=== PATIENT | male | born 1960 | race African-American/Black ===

== ENCOUNTER 2017-10-10 17:17 | Emergency (ER) | payer MEDICAID ==
[2016-02-10 13:08] VITALS: BMI 21.1
[2017-10-10 18:16] LABS: BASOPHILS 0.2 % (0-2); EOSINOPHILS 0.6 % (0-7); HEMOGLOBIN 11.3 g/dL (13.5-17.5); IMMATURE GRANULOCYTES 1.1 % (0-5); MCH 33.3 pg (26.0-34.0); MCHC 34.2 g/dL (31.0-37.0); MCV 97.3 fL (80.0-100.0); MEAN PLATELET VOLUME 9.4 fL (7.4-10.4); MONOCYTES 11.9 % (2-11); NEUTROPHILS 41.2 % (40-80); PLATELET COUNT 57 10x3/uL (130-400); RBC 3.39 10x6/uL (4.20-6.10); RDW 14.5 % (11.5-14.5); WBC 4.6 10x3/uL (4.8-10.8)
[2017-10-10 18:36] LABS: ALBUMIN 2.6 g/dL (3.4-5.0); ALKALINE PHOSPHATASE 91 U/L (46-116); ALT (SGPT) 57 U/L (10-68); BILIRUBIN - TOTAL 1.96 mg/dL (0.2-1.3); CALC OSMOLALITY 272 mosm/kg (275-300); CALCIUM 8.2 mg/dL (8.5-10.1); CARBON DIOXIDE 24.7 mmol/L (21.0-32.0); CHLORIDE - SERUM 102 mmol/L (98-107); CREATININE - SERUM 0.9 mg/dL (0.6-1.3); GLUCOSE 127 mg/dL (74-106); MAGNESIUM - SERUM 1.7 mg/dL (1.8-2.4); POTASSIUM - SERUM 3.8 mmol/L (3.5-5.1); PROTEIN - SERUM 7.6 g/dL (6.4-8.2); SODIUM 137 mmol/L (136-145); UREA NITROGEN 4 mg/dL (7-18); eGFR NON AFRICAN AMERICAN > 90 mL/min (90-120)
[2017-10-10 19:14] LABS: PLATELET ESTIMATE DECREASED
[2017-10-10 19:38] LABS: TROPONIN-I 0.017 ng/mL (0.000-0.060)
[2017-10-10 20:35] LABS: APPEARANCE CLEAR (CLEAR); BILIRUBIN NEGATIVE (NEGATIVE); COLOR YELLOW (YELLOW); GLUCOSE NEGATIVE (NEGATIVE); KETONE NEGATIVE (NEGATIVE); NITRITE NEGATIVE (NEGATIVE); PROTEIN NEGATIVE (NEGATIVE); SPECIFIC GRAVITY 1.015 (1.005-1.020); UROBILINOGEN NORMAL (NORMAL)
[2017-10-10 20:51] LABS: UDS - AMPHET NEGATIVE QUAL (NEGATIVE); UDS - BARB NEGATIVE QUAL (NEGATIVE); UDS - BENZO NEGATIVE QUAL (NEGATIVE); UDS - COCAINE NEGATIVE QUAL (NEGATIVE); UDS - OPIATE NEGATIVE QUAL (NEGATIVE); UDS - PCP NEGATIVE QUAL (NEGATIVE); UDS - THC NEGATIVE QUAL (NEGATIVE)
== END 2017-10-11 08:49 | disposition home or self-care (01) ==
LOC: D.ER 17:17
PROVIDERS: Emergency Medicine; Nurse Practitioner Family
DX: F10.129 Alcohol abuse with intoxication, unspecified (principal); F10.10 Alcohol abuse, uncomplicated

== ENCOUNTER 2017-12-23 20:53 | Emergency (ER) | payer MEDICAID ==
[2016-02-10 13:08] VITALS: BMI 21.1
[2017-12-23 21:59] LABS: BASOPHILS 0 % (0-2); EOSINOPHILS 0.4 % (0-7); HEMATOCRIT 34.4 % (42.0-54.0); LYMPHOCYTES 63.7 % (15-50); MCH 33.5 pg (26.0-34.0); MCHC 34.9 g/dL (31.0-37.0); MCV 96.1 fL (80.0-100.0); MEAN PLATELET VOLUME 9.2 fL (7.4-10.4); NEUTROPHILS 23.9 % (40-80); RBC 3.58 10x6/uL (4.20-6.10); RDW 13.6 % (11.5-14.5); WBC 2.7 10x3/uL (4.8-10.8)
[2017-12-23 22:07] LABS: ALBUMIN 3.3 g/dL (3.4-5.0); ALKALINE PHOSPHATASE 210 U/L (46-116); ALT (SGPT) 124 U/L (10-68); BILIRUBIN - TOTAL 1.21 mg/dL (0.2-1.3); CALC OSMOLALITY 277 mosm/kg (275-300); CALCIUM 8.7 mg/dL (8.5-10.1); CARBON DIOXIDE 29.8 mmol/L (21.0-32.0); CHLORIDE - SERUM 103 mmol/L (98-107); CREATININE - SERUM 0.9 mg/dL (0.6-1.3); GLUCOSE 106 mg/dL (74-106); PROTEIN - SERUM 8.5 g/dL (6.4-8.2); SODIUM 140 mmol/L (136-145); UREA NITROGEN 11 mg/dL (7-18); eGFR NON AFRICAN AMERICAN > 90 mL/min (90-120)
[2017-12-23 22:13] LABS: PLATELET COUNT 25 10x3/uL (130-400)
[2017-12-23 22:42] LABS: PLATELET ESTIMATE DECREASED
== END 2017-12-23 22:45 | disposition home or self-care (01) ==
LOC: D.ER 20:53
PROVIDERS: Family Medicine
DX: R04.0 Epistaxis (principal); M54.9 Dorsalgia, unspecified; D69.6 Thrombocytopenia, unspecified; D72.819 Decreased white blood cell count, unspecified; R94.5 Abnormal results of liver function studies

== ENCOUNTER 2018-07-08 00:27 | Observation (INO) | payer MEDICAID ==
[~2018-07-08] VITALS: Ht 185.4 cm; Wt 77.3 kg
[2018-07-08 01:01] LABS: BASOPHILS 0.3 % (0-2); EOSINOPHILS 0.3 % (0-7); HEMATOCRIT 29.5 % (42.0-54.0); HEMOGLOBIN 10.3 g/dL (13.5-17.5); IMMATURE GRANULOCYTES 0.3 % (0-5); LYMPHOCYTES 47.5 % (15-50); MCH 33.4 pg (26.0-34.0); MCHC 34.9 g/dL (31.0-37.0); MCV 95.8 fL (80.0-100.0); MEAN PLATELET VOLUME 10.7 fL (7.4-10.4); MONOCYTES 13.4 % (2-11); NEUTROPHILS 38.2 % (40-80); RBC 3.08 10x6/uL (4.20-6.10); RDW 14.6 % (11.5-14.5); WBC 3.4 10x3/uL (4.8-10.8)
[2018-07-08 01:07] LABS: PLATELET COUNT 35 10x3/uL (130-400)
[2018-07-08 01:23] LABS: ALBUMIN 2.9 g/dL (3.4-5.0); ALKALINE PHOSPHATASE 102 U/L (46-116); ALT (SGPT) 76 U/L (10-68); BILIRUBIN - TOTAL 3.59 mg/dL (0.2-1.3); CALC OSMOLALITY 261 mosm/kg (275-300); CALCIUM 8.1 mg/dL (8.5-10.1); CARBON DIOXIDE 20.6 mmol/L (21.0-32.0); CHLORIDE - SERUM 97 mmol/L (98-107); CREATININE - SERUM 0.9 mg/dL (0.6-1.3); GLUCOSE 100 mg/dL (74-106); POTASSIUM - SERUM 3.5 mmol/L (3.5-5.1); PROTEIN - SERUM 7.8 g/dL (6.4-8.2); SODIUM 131 mmol/L (136-145); UREA NITROGEN 11 mg/dL (7-18); eGFR NON AFRICAN AMERICAN > 90 mL/min (90-120)
[2018-07-08 02:57] LABS: APPEARANCE CLEAR (CLEAR); BILIRUBIN NEGATIVE (NEGATIVE); COLOR YELLOW (YELLOW); GLUCOSE NEGATIVE (NEGATIVE); KETONE NEGATIVE (NEGATIVE); NITRITE NEGATIVE (NEGATIVE); PROTEIN NEGATIVE (NEGATIVE); UROBILINOGEN NORMAL (NORMAL)
[2018-07-08 03:00] VITALS: BP 106/62
[2018-07-08 03:05] LABS: UDS - AMPHET NEGATIVE QUAL (NEGATIVE); UDS - BARB NEGATIVE QUAL (NEGATIVE); UDS - BENZO NEGATIVE QUAL (NEGATIVE); UDS - COCAINE NEGATIVE QUAL (NEGATIVE); UDS - OPIATE NEGATIVE QUAL (NEGATIVE); UDS - PCP NEGATIVE QUAL (NEGATIVE); UDS - THC NEGATIVE QUAL (NEGATIVE)
[2018-07-08 09:03] VITALS: BP 99/68
[2018-07-08 10:50] LABS: APTT 34.7 SECONDS (22.8-39.4); INR 1.38 (0.85-1.17); PROTIME 16.5 SECONDS (11.6-15.0)
[2018-07-08 10:53] VITALS: BP 99/68; Ht 185.4 cm; Wt 77.3 kg
[2018-07-09 02:16] LABS: LYMPHOCYTES 46 % (15-50); MONOCYTES 11 % (2-11); NEUTROPHILS 43 % (40-80); PLATELET ESTIMATE DECREASED
== END 2018-07-08 19:45 | disposition home or self-care (01) ==
LOC: D.ER 00:27 → OBSVTIME 05:03 → D.MS 05:03 → D.EDHOLD 05:03 → D.MS 05:42
PROVIDERS: Family Medicine; Internal Medicine Medical Oncology
DX: D69.6 Thrombocytopenia, unspecified (principal); F10.129 Alcohol abuse with intoxication, unspecified; Y90.7 Blood alcohol level of 200-239 mg/100 ml; R22.0 Localized swelling, mass and lump, head; Z59.0 Homelessness

== ENCOUNTER 2018-10-20 19:06 | Emergency (ER) | payer MEDICAID | END 2018-10-21 01:06 | disposition home or self-care (01) | LOC: D.ER 19:06 | DX: K02.9 Dental caries, unspecified (principal); D17.79 Benign lipomatous neoplasm of other sites; K08.89 Other specified disorders of teeth and supporting structures; R22.9 Localized swelling, mass and lump, unspecified; F17.200 Nicotine dependence, unspecified, uncomplicated ==

== ENCOUNTER 2018-10-21 02:27 | Inpatient (IN) | payer MEDICAID ==
[2018-10-21] VITALS (17 sets, daily range): BP systolic 101–138; BP diastolic 54–91; Ht 185.4 cm; Wt 77.3 kg
[~2018-10-21] VITALS: Ht 185.4 cm; Wt 77.3 kg
--- NOTE | ~2018-10-21 | OP ---
PATIENT NAME: MACO SAVAGE MEDICAL RECORD: [id number] :60 LOCATION:D.MS [facility]roquin2224 ADMISSION DATE:10/21/18 SURGEON: CECILIO VELAZQUEZ MD DATE OF OPERATION: 10/21/2018 PREOPERATIVE DIAGNOSES: Right facial hematoma and hemorrhaging. POSTOPERATIVE DIAGNOSES: Right facial hematoma and hemorrhaging. PROCEDURE: Evacuation of right facial hematoma and control of hemorrhaging. SURGEON: Cecilio Velazquez MD ANESTHESIA: General orotracheal. BLOOD LOSS: During the procedure including the hematoma evacuation about 50 cc. SPECIMENS: None. DRAINS: A Brandon drain. COMPLICATIONS: None. DISPOSITION: Recovery stable. FINDINGS: Bleeding from the multiple areas in the masseter muscle, some small vessels inferiorly possible branches of the facial artery. DESCRIPTION OF PROCEDURE: He was brought to the operating room and placed in supine position, he was sedated and intubated by anesthesia. Head was turned slightly to the left. He was positioned, prepped and draped in usual sterile fashion. Some more sutures were removed from the wound in the right lower face with just a finger was able to evacuate large lemon-sized hematoma. With that completed, the wound was irrigated with warm saline and carefully inspected. There were multiple small areas in the masseter muscle. They were cauterized with bipolar cautery. Some small vessels easily identified inferiorly that were controlled with bipolar cautery as well, cautious to avoid any injury to the marginal nerve. There was no really way to tell if that was functional preoperative to the massive facial swelling. Once the bleeding was controlled, the wound was carefully irrigated again, carefully inspected, some bleeding was controlled from the skin edges with bipolar cautery as well. With that completely clean, some fibrillar was placed on some of the areas of the masseter muscle. He was already receiving platelets by this time. A [place] drain was placed. He already received IV antibiotics. The wound was closed with interrupted subcutaneous 5-0 Vicryl. Skin was closed with 5-0 Prolene and drain stitch was placed. The wound was dressed. He was awakened, extubated, and transported to recovery in good condition. No complications. TRANSINT:[id number] Voice Confirmation ID: [id number] DOCUMENT ID: [id number] OPERATIVE REPORT [id number] AMCO SAVAGE CECILIO VELAZQUEZ MD at 1011 CC: [id number] DICTATION DATE: 10/21/18 0533 MANAGER ACQUISITION: 10/21/18 0931 ADM IN [place] [id number] [place] [address]
--- NOTE | ~2018-10-21 | MORECARE ---
CASE MANAGEMENT DISCHARGE SUMMARY PATIENT: MACO SAVAGE UNIT: [id number] ADM DATE: 10/21/18 AGE: 58 : 60 SEX: M ROOM/BED: D.2224 AUTHOR: CHAMP,DOC PHYSICIAN: REFERRING PHYSICIAN: RAVI VELAZQUEZ MD DATE OF SERVICE: 10/22/18 Discharge Plan Patient Name: MACO SAVAGE Facility: [facility]:[place] : 1960 Planned Disposition: Other Type of Facility Anticipated Discharge Date: 10/22/18 Discharge Date: 10/22/2018 Expected LOS: 1 Initial Reviewer: [email or web address] Initial Review Date: 10/21/2018 Generated: 10/22/18 3:13 pm Comments DCP- Discharge Planning Updated by [email or web address]: Krissy Vidal on 10/22/18 1:[address] LATE ENTRY 0950 CM SPOKE WITH THE PATIENT AT THE BEDSIDE THIS AM. HE IS HOMELESS, HIS PLAN IS TO GO TO A CARE HOME. HE IS FAMILIAR WITH [facility]. HE ALSO STATES HE HAS BEEN TO [facility] DURING THE WINTER. HE WILL NEED TRANSPORTATION. HE HAS INSURANCE WHICH CM VERIFIED WITH ER REGISTRATION. HE THEREFORE SHOULD BE ABLE TO GET HIS MEDICATIONS. CM TO APPROVED [employer]AX[employer] TRANSPORT TO CARE HOME. HE HAS A SISTER. WILL NOT GIVE NAME AND STATES HE DOES NOT KNOW HER CONTACT PHONE NUMBER. PHARMACY- [facility] PCP-NONE CM PROVIDED CONTACT PHONE NUMBER FOR [facility] [phone] AND [facility] [phone] FOR PATIENT TO CALL. CM SPOKE WITH THE PRIMARY NURSE TO UPDATE. CM REQUESTED THE PATIENT BE GIVEN DRESSINGS FOR DRSG CHANGE AND SOME OF HIS SUPPLEMENT TO ASSIST WITH WOUND HEALING. DCPIA - Discharge Planning Initial Assessment Updated by [email or web address]: Krissy Vidal on 10/22/18 1:27 pm * Is the patient Alert and Oriented? Yes * How many steps to enter\exit or inside your home? NONE * PCP NONE * Pharmacy [facility] * Preadmission Environment Homeless * Other Environment HAS BEEN TO [facility] DURING EXTREME COLD PEROIDS WHEN THEIR CARE HOME IS OPEN. * Facility Name ABOVE * ADLs Independent * Other Equipment HIS PERSONAL BELONGINGS * List name and contact numbers for known caregivers / representatives who currently or will assist patient after discharge: NONE LISTED AND HE DID NOT GIVE ADDITIONAL INFORMATION * Verbal permission to speak to the caregivers and representatives has been obtained from the patient. No * Community resources currently utilized None * Please name any agencies selected above. N/A * Additional services required to return to the preadmission environment? Yes * Can the patient safely return to the preadmission environment? Yes * Has this patient been hospitalized within the prior 30 days at any hospital? No Last DP export: 10/22/18 12:30 p Patient Name: MACO SAVAGE Page 29619 at 1414 All edits/amendments must be made on the electronic document DICTATION DATE: 10/22/181412 ROLLER: YELENA 10/22/181412 RPT#: [id number] DC DATE:10/22/18 STATUS: DIS IN [facility] [address] [place] [address] END OF REPORT
--- NOTE | ~2018-10-21 | MORECARE ---
CASE MANAGEMENT DISCHARGE SUMMARY PATIENT: MACO SAVAGE UNIT: [id number] ADM DATE: 10/21/18 AGE: 58 : 60 SEX: M ROOM/BED: D.2224 AUTHOR: FINA OAKES PHYSICIAN: REFERRING PHYSICIAN: RAVI VELAZQUEZ MD DATE OF SERVICE: 10/22/18 Discharge Plan Patient Name: MACO SAVAGE [facility] [facility] 1960 Planned Disposition: Other Type of Facility Anticipated Discharge Date: 10/22/18 Discharge Date: Expected LOS: 1 Initial Reviewer: [email or web address] Initial Review Date: 10/21/2018 Generated: 10/22/18 2:30 pm DCPIA - Discharge Planning Initial Assessment Updated by [email or web address]: Krsisy Vidal on 10/22/18 1:27 pm * Is the patient Alert and Oriented? Yes * How many steps to enter\exit or inside your home? NONE * PCP NONE * Pharmacy [facility] * Preadmission Environment Homeless * Other Environment HAS BEEN TO [facility] DURING EXTREME COLD PEROIDS WHEN THEIR INTERMEDIATE IS OPEN. * Facility Name ABOVE * ADLs Independent * Other Equipment HIS PERSONAL BELONGINGS * List name and contact numbers for known caregivers / representatives who currently or will assist patient after discharge: NONE LISTED AND HE DID NOT GIVE ADDITIONAL INFORMATION * Verbal permission to speak to the caregivers and representatives has been obtained from the patient. No * Community resources currently utilized None * Please name any agencies selected above. N/A * Additional services required to return to the preadmission environment? Yes * Can the patient safely return to the preadmission environment? Yes * Has this patient been hospitalized within the prior 30 days at any hospital? No Last DP export: 10/22/18 12:23 p Patient Name: MACO SAVAGE Page 10157 at 1330 All edits/amendments must be made on the electronic document DICTATION DATE: 10/22/18 1329 SUMAC TANNER: YELENA 10/22/18 1329 RPT#: [id number] DC DATE: STATUS: ADM IN [facility] [address] [place] [address] END OF REPORT
--- NOTE | ~2018-10-21 | HP ---
PATIENT: MACO SAVAGE MEDICAL RECORD: [id number] ACCOUNT: [id number] LOCATION:D.MS Marroquin2224 : 60 ADMISSION DATE: 10/21/18 PCP: No PCP HISTORY AND PHYSICAL EXAMINATION HISTORY: Mr. Savage is a 58-year-old male, who was in the Emergency Room, underwent a procedure to drain something on the right face, I don't think he ever left but several hours later was noticed to have tremendous amount of right facial swelling and continued bleeding from the area that the Emergency Room was not able to stop. His past medical history fairly well unknown. He has a platelet count of 50. He has had platelet counts in the 30s before. He is as far as I now homeless, alcoholic. He does smoke and has been in the Emergency Room with possible seizures or DTs, brought in found down, unconscious on previous hospital ER visits. His platelet count is low, he does not know why. He is not on any medications. He does smoke and drink alcohol. PHYSICAL EXAMINATION: GENERAL: He is intoxicated. HEENT: Right facial, quite a bit of swelling of the right cheek with bleeding incision over the right angle of the mandible near the facial notch about 4 cm in length. Swelling up to his eye. NECK: No masses or adenopathy. Really does not have any swelling below the angle of the mandible. CHEST: Clear. CARDIOVASCULAR: Regular rate and rhythm. No murmur. Appears slightly dehydrated. NEUROLOGIC: Not a very good historian, but does have a fairly normal voice. LABORATORY DATA: Platelet count is 50, hemoglobin is above 11. Creatinine 0.9. His PT and PTT are okay. IMPRESSION: Right facial hematoma, thrombocytopenia. PLAN: We will admit him, take him to the OR for evacuation of hematoma, control of hemorrhage from the facial wound, and give him some platelets. TRANSINT:[id number] Voice Confirmation ID: [id number] DOCUMENT ID: [id number] RAVI VELAZQUEZ MD at 1011 CC: [id number] DICTATION DATE: 10/21/18 0530 BUILDING SPECIALIST: 10/21/18 0736 ADM IN [place] [address] [place] [address]
--- NOTE | ~2018-10-21 | MORECARE ---
CASE MANAGEMENT DISCHARGE SUMMARY PATIENT: MACO SAVAGE UNIT: [id number] ADM DATE: 10/21/18 AGE: 58 : 60 SEX: M ROOM/BED: D.2224 AUTHOR: FINA OAKES PHYSICIAN: REFERRING PHYSICIAN: RAVI VELAZQUEZ MD DATE OF SERVICE: 10/22/18 Discharge Plan Patient Name: MACO SAVAGE [facility] [facility] 1960 Planned Disposition: Other Type of Facility Anticipated Discharge Date: 10/22/18 Discharge Date: Expected LOS: 1 Initial Reviewer: [email or web address] Initial Review Date: 10/21/2018 Generated: 10/22/18 2:23 pm Patient Name: MACO SAVAGE Page 16459 at 1323 All edits/amendments must be made on the electronic document DICTATION DATE: 10/22/18 1323 SUPERVISOR VENEER: YELENA 10/22/18 1323 RPT#: [id number] DC DATE: STATUS: ADM IN [facility] [address] [place] [address] END OF REPORT
[~2018-10-21 02:27] MED LIST: KEFLEX500 MG PO; TORADOL10 MG PO
[2018-10-21 03:27] LABS: BASOPHILS 0.3 % (0-2); EOSINOPHILS 0.5 % (0-7); HEMATOCRIT 33.5 % (42.0-54.0); HEMOGLOBIN 11.7 g/dL (13.5-17.5); IMMATURE GRANULOCYTES 0.3 % (0-5); LYMPHOCYTES 42.3 % (15-50); MCH 34.6 pg (26.0-34.0); MCHC 34.9 g/dL (31.0-37.0); MCV 99.1 fL (80.0-100.0); MEAN PLATELET VOLUME 9.7 fL (7.4-10.4); MONOCYTES 11.9 % (2-11); NEUTROPHILS 44.7 % (40-80); PLATELET COUNT 50 10x3/uL (130-400); RBC 3.38 10x6/uL (4.20-6.10); RDW 14.1 % (11.5-14.5); WBC 3.7 10x3/uL (4.8-10.8)
[2018-10-21 03:31] LABS: APTT 32.5 SECONDS (22.8-39.4); CALC OSMOLALITY 279 mosm/kg (275-300); CALCIUM 8.6 mg/dL (8.5-10.1); CHLORIDE - SERUM 105 mmol/L (98-107); CREATININE - SERUM 0.9 mg/dL (0.6-1.3); GLUCOSE 110 mg/dL (74-106); INR 1.34 (0.85-1.17); POTASSIUM - SERUM 3.9 mmol/L (3.5-5.1); PROTIME 16.1 SECONDS (11.6-15.0); SODIUM 140 mmol/L (136-145); UREA NITROGEN 12 mg/dL (7-18); eGFR NON AFRICAN AMERICAN > 90 mL/min (90-120)
[2018-10-21 11:28] LABS: HEMATOCRIT 27.1 % (42.0-54.0); MCH 33.8 pg (26.0-34.0); MCHC 33.9 g/dL (31.0-37.0); MCV 99.6 fL (80.0-100.0); MEAN PLATELET VOLUME 8.9 fL (7.4-10.4); RBC 2.72 10x6/uL (4.20-6.10)
[2018-10-21 11:33] LABS: HEMOGLOBIN 9.2 g/dL (13.5-17.5); PLATELET COUNT 102 10x3/uL (130-400); WBC 2.4 10x3/uL (4.8-10.8)
[2018-10-21 11:52] LABS: LYMPHOCYTES 14 % (15-50); NEUTROPHILS 84 % (40-80); PLATELET ESTIMATE DECREASED
[2018-10-22 05:35] VITALS: BP 119/67
[2018-10-22 08:35] VITALS: BP 125/68
[2018-10-22 12:08] VITALS: BP 122/75
[2018-10-22] MEDS ORDERED: KEFLEX500 MG PO (13:02)
== END 2018-10-22 13:56 | disposition home or self-care (01) | DRG 909 ==
LOC: D.ER 02:27 → D.MS 05:05 → OBSVTIME 05:05 → D.MS 05:05
PROVIDERS: Emergency Medicine; Otolaryngology
PROC: 0W320ZZ Control Bleeding in Face, Open Approach (ICD-10-PCS; 2018-10-21)
PROC: 0K9 Muscles, Drainage (ICD-10-PCS; principal; 2018-10-21 04:00)
DX: I97.52 Accidental puncture and laceration of a circulatory system organ or structure during other procedure (principal); Y83.8 Other surgical procedures as the cause of abnormal reaction of the patient, or of later complication, without mention of misadventure at the time of the procedure; Y92.230 Patient room in hospital as the place of occurrence of the external cause; D69.6 Thrombocytopenia, unspecified; F10.20 Alcohol dependence, uncomplicated; Z72.0 Tobacco use

== ENCOUNTER → 2018-12-11 10:55 | Outpatient (CLI) | payer MEDICAID, OTHER ==
[2018-10-21 06:16] VITALS: BMI 22.4
== END | disposition home or self-care (01) ==
LOC: D.RAD 10:55
DX: Z02.71 Encounter for disability determination (principal)

== ENCOUNTER → 2019-01-04 13:16 | Outpatient (CLI) | payer OTHER ==
[2018-10-21 06:16] VITALS: BMI 22.4
== END | disposition home or self-care (01) ==
LOC: D.RT 13:00
DX: Z02.71 Encounter for disability determination (principal)

== ENCOUNTER 2019-06-22 07:51 | Emergency (ER) | payer MEDICAID ==
[~2019-06-22] VITALS: Ht 185.4 cm; Wt 77.3 kg
[2019-06-22 08:03] VITALS: BP 125/81; Ht 185.4 cm; Wt 77.3 kg
[2019-06-22] MEDS ORDERED: HYDROCODONE-A1 UDTA2 PO (08:49)
== END 2019-06-22 08:59 | disposition home or self-care (01) ==
LOC: D.ER 07:51
DX: S92.505A Nondisplaced unspecified fracture of left lesser toe(s), initial encounter for closed fracture (principal); V88.8XXA Person injured in other specified noncollision transport accidents involving motor vehicle, nontraffic, initial encounter; F17.200 Nicotine dependence, unspecified, uncomplicated

== ENCOUNTER 2019-06-25 23:18 | Inpatient (IN) | payer MEDICAID ==
[~2019-06-25] VITALS: Ht 185.4 cm; Wt 63.6 kg
[~2019-06-25 23:18] MED LIST changes: +HYDROCODONE-A1 UDTA2 PO
--- NOTE | 2019-06-25 23:24 | NUR ---
UNABLE TO ASSESS SUICIDE ASSESSMENT AT THIS TIME D/T PT ATTENTION AND MENTATION.
[2019-06-25 23:31] VITALS: BP 121/81
--- NOTE | 2019-06-26 00:14 | NUR ---
URINE COLLECTED AND SENT TO LAB AT THIS TIME.
[2019-06-26 00:26] LABS: HEMATOCRIT 25.2 % (42.0-54.0); HEMOGLOBIN 8.8 g/dL (13.5-17.5); MCH 34.2 pg (26.0-34.0); MCHC 34.9 g/dL (31.0-37.0); MCV 98.1 fL (80.0-100.0); RBC 2.57 10x6/uL (4.20-6.10); WBC 4.8 10x3/uL (4.8-10.8)
[2019-06-26 00:27] LABS: LYMPHOCYTES 24.9 % (15-50); MEAN PLATELET VOLUME 9.9 fL (7.4-10.4); NEUTROPHILS 66.6 % (40-80); PLATELET COUNT 74 10x3/uL (130-400); RDW 19.1 % (11.5-14.5)
[2019-06-26 00:36] LABS: ALKALINE PHOSPHATASE 217 U/L (46-116); ALT (SGPT) 38 U/L (10-68); BILIRUBIN - TOTAL 4.24 mg/dL (0.2-1.3); CALC OSMOLALITY 255 mosm/kg (275-300); CALCIUM 8.6 mg/dL (8.5-10.1); CARBON DIOXIDE 24.5 mmol/L (21.0-32.0); CHLORIDE - SERUM 97 mmol/L (98-107); CREATININE - SERUM 0.8 mg/dL (0.6-1.3); GLUCOSE 91 mg/dL (74-106); POTASSIUM - SERUM 3.8 mmol/L (3.5-5.1); SODIUM 129 mmol/L (136-145); UREA NITROGEN 5 mg/dL (7-18); eGFR NON AFRICAN AMERICAN > 90 mL/min (90-120)
[2019-06-26 00:37] LABS: ALBUMIN 2.4 g/dL (3.4-5.0); PROTEIN - SERUM 7.7 g/dL (6.4-8.2)
--- NOTE | 2019-06-26 00:50 | NUR ---
PT TO CT AT THIS TIME.
[2019-06-26 01:01] LABS: APPEARANCE CLEAR (CLEAR); BILIRUBIN NEGATIVE (NEGATIVE); COLOR YELLOW (YELLOW); GLUCOSE NEGATIVE (NEGATIVE); KETONE NEGATIVE (NEGATIVE); NITRITE NEGATIVE (NEGATIVE); PROTEIN NEGATIVE (NEGATIVE); SPECIFIC GRAVITY 1.005 (1.005-1.020); UROBILINOGEN NORMAL (NORMAL)
[2019-06-26 01:02] LABS: WHITE CELLS - URINE 0-5 /hpf (0-5)
[2019-06-26 01:03] LABS: BACTERIA FEW /hpf (NONE SEEN); EPITHELIAL CELLS 0-5 /hpf (0-5); RED CELLS - URINE 0-5 /hpf (0-5)
--- NOTE | 2019-06-26 01:05 | NUR ---
PT RETURNED FROM CT AT THIS TIME.
[2019-06-26 01:37] LABS: UDS - AMPHET NEGATIVE QUAL (NEGATIVE); UDS - BARB NEGATIVE QUAL (NEGATIVE); UDS - BENZO NEGATIVE QUAL (NEGATIVE); UDS - COCAINE POSITIVE QUAL (NEGATIVE); UDS - OPIATE NEGATIVE QUAL (NEGATIVE); UDS - PCP NEGATIVE QUAL (NEGATIVE); UDS - THC NEGATIVE QUAL (NEGATIVE)
[2019-06-26 01:55] VITALS: BP 117/70
--- NOTE | 2019-06-26 02:08 | NUR ---
PT RESTING QUIETLY WITH EYES CLOSED AND TV ON AT THIS TIME. SIDE RAILS UP X 2, CALL LIGHT IN REACH, BED IN LOWEST POSITION. NO S/S DISTRESS NOTED. RESPIRATIONS EVEN AND UNLABORED.
--- NOTE | 2019-06-26 07:30 | NUR ---
PT RESTING IN BED, EYES CLOSED. AROUSES TO VOICE. VERY SLEEPY. NO C/O PAIN. NO S/S OF ACUTE DISTRESS NOTED. PT DENIES ANY NEEDS. CALL LIGHT IN REACH. WILL CONTINUE TO MONITOR.
[2019-06-26 07:42] LABS: ALBUMIN 2.3 g/dL (3.4-5.0); ALKALINE PHOSPHATASE 211 U/L (46-116); ALT (SGPT) 35 U/L (10-68); AMYLASE - SERUM 33 U/L (25-115); BILIRUBIN - TOTAL 3.97 mg/dL (0.2-1.3); CALC OSMOLALITY 273 mosm/kg (275-300); CALCIUM 8.4 mg/dL (8.5-10.1); CARBON DIOXIDE 21.9 mmol/L (21.0-32.0); CHLORIDE - SERUM 104 mmol/L (98-107); CREATININE - SERUM 0.8 mg/dL (0.6-1.3); GLUCOSE 80 mg/dL (74-106); LIPASE 142 U/L (73-393); POTASSIUM - SERUM 4.1 mmol/L (3.5-5.1); PROTEIN - SERUM 7.5 g/dL (6.4-8.2); SODIUM 139 mmol/L (136-145); UREA NITROGEN 5 mg/dL (7-18); eGFR NON AFRICAN AMERICAN > 90 mL/min (90-120)
[2019-06-26 07:51] VITALS: BP 103/76; Ht 185.4 cm; Wt 63.6 kg
[2019-06-26 08:33] LABS: HEMATOCRIT 27.4 % (42.0-54.0); HEMOGLOBIN 9.5 g/dL (13.5-17.5); MCH 32.8 pg (26.0-34.0); MCHC 34.7 g/dL (31.0-37.0); MEAN PLATELET VOLUME 10.9 fL (7.4-10.4); PLATELET COUNT 87 10x3/uL (130-400); RDW 17.1 % (11.5-14.5)
[2019-06-26 08:35] LABS: MCV 94.5 fL (80.0-100.0)
[2019-06-26 08:59] VITALS: BP 97/65
[2019-06-26 10:35] LABS: LYMPHOCYTES 26 % (15-50); MONOCYTES 9 % (2-11); NEUTROPHILS 65 % (40-80)
[2019-06-26 10:36] LABS: HYPOCHROMASIA OCC; PLATELET ESTIMATE DECREASED; ROULEAUX OCC; TARGET CELLS OCC
[2019-06-26 10:53] LABS: % SATURATION 27 % (15-55); IRON 72 ug/dl (35-150); TOTAL IRON BIND CAPACITY 263 ug/dl (260-445); UNSAT IRON BIND CAPACITY 191 ug/dl (150-375)
[2019-06-26 13:11] VITALS: BP 92/64
--- NOTE | 2019-06-26 14:16 | NUR ---
PT LEFT AMA, TOOK OUT IV. PT TOOK BELONGINGS AND IS NOT IN ROOM. ORTHODONTIC TECHNICIAN AWARE.
== END 2019-06-26 14:17 | disposition left against medical advice (07) | DRG 433 ==
LOC: D.ER 23:18 → D.MS 06-26 02:21
PROVIDERS: Family Medicine; ADMIT Internal Medicine Nephrology; ATTEND Internal Medicine Nephrology
DX: K74.60 Unspecified cirrhosis of liver (principal); C22.0 Liver cell carcinoma; C79.9 Secondary malignant neoplasm of unspecified site; R18.8 Other ascites; F17.213 Nicotine dependence, cigarettes, with withdrawal; F10.129 Alcohol abuse with intoxication, unspecified; Y90.8 Blood alcohol level of 240 mg/100 ml or more; F14.90 Cocaine use, unspecified, uncomplicated; D64.9 Anemia, unspecified; D69.6 Thrombocytopenia, unspecified; S92.902A Unspecified fracture of left foot, initial encounter for closed fracture; W23.0XXA Caught, crushed, jammed, or pinched between moving objects, initial encounter

== ENCOUNTER 2019-07-09 08:51 | Inpatient (IN) | payer MEDICAID ==
[2019-07-09] VITALS (8 sets, daily range): BP systolic 102–131; BP diastolic 71–85; BMI 22.4
[~2019-07-09] VITALS: Ht 185.4 cm; Wt 77.1 kg
[2019-07-09 09:43] LABS: BASOPHILS 0.2 % (0-2); EOSINOPHILS 0 % (0-7); HEMATOCRIT 27.6 % (42.0-54.0); HEMOGLOBIN 9.7 g/dL (13.5-17.5); IMMATURE GRANULOCYTES 0.3 % (0-5); LYMPHOCYTES 12.7 % (15-50); MCH 34.4 pg (26.0-34.0); MCHC 35.1 g/dL (31.0-37.0); MCV 97.9 fL (80.0-100.0); MEAN PLATELET VOLUME 9.8 fL (7.4-10.4); MONOCYTES 8.3 % (2-11); NEUTROPHILS 78.5 % (40-80); RBC 2.82 10x6/uL (4.20-6.10); WBC 6.2 10x3/uL (4.8-10.8)
[2019-07-09 09:45] LABS: PLATELET COUNT 105 10x3/uL (130-400)
[2019-07-09 09:57] LABS: ALBUMIN 2.5 g/dL (3.4-5.0); ALKALINE PHOSPHATASE 214 U/L (46-116); ALT (SGPT) 41 U/L (10-68); BILIRUBIN - TOTAL 7.39 mg/dL (0.2-1.3); CALC OSMOLALITY 260 mosm/kg (275-300); CALCIUM 9.6 mg/dL (8.5-10.1); CARBON DIOXIDE 24.8 mmol/L (21.0-32.0); CHLORIDE - SERUM 98 mmol/L (98-107); CREATININE - SERUM 0.8 mg/dL (0.6-1.3); GLUCOSE 100 mg/dL (74-106); LIPASE 206 U/L (73-393); POTASSIUM - SERUM 4.5 mmol/L (3.5-5.1); SODIUM 131 mmol/L (136-145); UREA NITROGEN 7 mg/dL (7-18); eGFR NON AFRICAN AMERICAN > 90 mL/min (90-120)
--- NOTE | 2019-07-09 10:08 | NUR ---
PT IMMEDIATELY DEVELOPED ITCHING AND MINOR RASH TO RIGHT ARM,PROXIMAL TO IV SITE AFTER MORPHINE ADMINISTRATION. NOTIFIED IMMEDIATELY. HE ADVISED TO GIVE THE PATIENT 25MG OF BENADRYL.
[2019-07-09 12:58] LABS: INR 1.54 (0.85-1.17); PROTIME 17.9 SECONDS (11.6-15.0)
--- NOTE | 2019-07-09 13:30 | NUR ---
REPORT CALLED TO HEIKE RODRIGUEZ.
[2019-07-09 15:48] LABS: APPEARANCE CLEAR (CLEAR); BILIRUBIN 2+ (NEGATIVE); COLOR DK YELLOW (YELLOW); GLUCOSE NEGATIVE (NEGATIVE); KETONE NEGATIVE (NEGATIVE); NITRITE NEGATIVE (NEGATIVE); PROTEIN NEGATIVE (NEGATIVE)
[2019-07-09 15:50] LABS: BACTERIA FEW /hpf (NONE SEEN); RED CELLS - URINE OCC /hpf (0-5); WHITE CELLS - URINE 0-5 /hpf (0-5)
[2019-07-09 15:56] LABS: UDS - AMPHET NEGATIVE QUAL (NEGATIVE); UDS - BARB NEGATIVE QUAL (NEGATIVE); UDS - BENZO NEGATIVE QUAL (NEGATIVE); UDS - COCAINE POSITIVE QUAL (NEGATIVE); UDS - OPIATE POSITIVE QUAL (NEGATIVE); UDS - PCP NEGATIVE QUAL (NEGATIVE); UDS - THC NEGATIVE QUAL (NEGATIVE)
[2019-07-09 16:32] LABS: THYROID STIMULATING HORMONE 9.5 uIU/mL (0.36-3.74)
--- NOTE | 2019-07-09 20:00 | NUR ---
ASSESSMENT PER JULIETTE. SALINE LOCK PATENT RT HAND SITE CLEAR. JULISSA MAT ON BED AND ALARMS SET. SCLERA JAUNDICE. ALERT/ORIENTED X3 SR UP X2 CALL LIGHT WITHIN REACH.
--- NOTE | 2019-07-09 23:55 | NUR ---
UP WITH HELP TO BR VOIDS WELL. WILL BE NPO FOR RADIOLOGY PROCEDURE IN AM.
[2019-07-10 00:17] VITALS: BP 101/65
[2019-07-10 04:42] VITALS: BP 112/74
--- NOTE | 2019-07-10 05:30 | NUR ---
EYES CLOSED RESPIRATIONS WITH EASE AND UNLABORED.
[2019-07-10 05:41] LABS: BASOPHILS 0.2 % (0-2); EOSINOPHILS 0.3 % (0-7); HEMATOCRIT 25.2 % (42.0-54.0); HEMOGLOBIN 9.1 g/dL (13.5-17.5); IMMATURE GRANULOCYTES 0.6 % (0-5); LYMPHOCYTES 15.8 % (15-50); MCH 35.3 pg (26.0-34.0); MCHC 36.1 g/dL (31.0-37.0); MCV 97.7 fL (80.0-100.0); MEAN PLATELET VOLUME 10.2 fL (7.4-10.4); MONOCYTES 11.5 % (2-11); NEUTROPHILS 71.6 % (40-80); PLATELET COUNT 101 10x3/uL (130-400); RBC 2.58 10x6/uL (4.20-6.10); WBC 6.2 10x3/uL (4.8-10.8)
[2019-07-10 05:50] LABS: APTT 36.5 SECONDS (22.8-39.4); INR 1.55 (0.85-1.17)
[2019-07-10 05:55] LABS: CALC OSMOLALITY 261 mosm/kg (275-300); CARBON DIOXIDE 24.4 mmol/L (21.0-32.0); CHLORIDE - SERUM 99 mmol/L (98-107); CREATININE - SERUM 0.8 mg/dL (0.6-1.3); GLUCOSE 84 mg/dL (74-106); POTASSIUM - SERUM 4.3 mmol/L (3.5-5.1); SODIUM 132 mmol/L (136-145); UREA NITROGEN 8 mg/dL (7-18); eGFR NON AFRICAN AMERICAN > 90 mL/min (90-120)
[2019-07-10 08:06] VITALS: BP 93/58
[2019-07-10 09:24] LABS: % SATURATION 48 % (15-55); IRON 105 ug/dl (35-150); TOTAL IRON BIND CAPACITY 215 ug/dl (260-445); UNSAT IRON BIND CAPACITY 110 ug/dl (150-375)
[2019-07-10 14:15] VITALS: BP 102/68
[2019-07-10 14:35] VITALS: Ht 185.4 cm; Wt 77.1 kg
[2019-07-10 15:47] VITALS: BP 101/68
--- NOTE | 2019-07-10 17:10 | NUR ---
PATIENT STATED HE HAS SWELLING TO HIS TESTICLES. ELEVATED ON TOWEL AT THIS TIME. IV INTACT. NO COMPLAINTS. CALL LIGHT WITHIN REACH.
--- NOTE | 2019-07-10 18:33 | NUR ---
PATIENT IN BED WITH EYES CLOSED RESTING QUIETLY AT THIS TIME. IV INTACT. CALL LIGHT WITHIN REACH.
--- NOTE | 2019-07-10 20:00 | NUR ---
ASSESSMENT PER FLOWSHEET. IV PATENT RT HAND SALINE LOCKED. SR UP X2 CALL LIGHT WITHIN REACH JULISSA BED ALARM MAT IN USE WITH ALARMS SET. DOOR OPENED. SCLERA JAUNDICE BILAT. TESTICLES SWOLLEN.
[2019-07-10 21:37] VITALS: BP 104/68
--- NOTE | 2019-07-10 21:40 | NUR ---
RESTING QUIETLY DENIES NEEDS.
--- NOTE | 2019-07-10 23:53 | NUR ---
NPO FOR POSSIBLE CT GUIDED PARACENTESIS. PENDING LAB RESULTS.
[2019-07-11 00:49] VITALS: BP 98/65
[2019-07-11 05:16] VITALS: BP 112/60
[2019-07-11 06:50] LABS: BASOPHILS 0.2 % (0-2); EOSINOPHILS 0.2 % (0-7); HEMATOCRIT 26.4 % (42.0-54.0); IMMATURE GRANULOCYTES 0.2 % (0-5); LYMPHOCYTES 17.4 % (15-50); MCH 33.7 pg (26.0-34.0); MCHC 34.1 g/dL (31.0-37.0); MCV 98.9 fL (80.0-100.0); MEAN PLATELET VOLUME 10.3 fL (7.4-10.4); MONOCYTES 10.6 % (2-11); NEUTROPHILS 71.4 % (40-80); PLATELET COUNT 94 10x3/uL (130-400); RBC 2.67 10x6/uL (4.20-6.10); RDW 18.1 % (11.5-14.5); WBC 5.4 10x3/uL (4.8-10.8)
[2019-07-11 07:26] LABS: APTT 35.8 SECONDS (22.8-39.4); INR 1.6 (0.85-1.17); PROTIME 18.5 SECONDS (11.6-15.0)
[2019-07-11 07:34] LABS: ALBUMIN 2.1 g/dL (3.4-5.0); ALKALINE PHOSPHATASE 191 U/L (46-116); ALT (SGPT) 37 U/L (10-68); BILIRUBIN - TOTAL 6.64 mg/dL (0.2-1.3); CALC OSMOLALITY 264 mosm/kg (275-300); CALCIUM 8.9 mg/dL (8.5-10.1); CARBON DIOXIDE 25.9 mmol/L (21.0-32.0); CHLORIDE - SERUM 100 mmol/L (98-107); CREATININE - SERUM 0.9 mg/dL (0.6-1.3); GLUCOSE 88 mg/dL (74-106); MAGNESIUM - SERUM 1.5 mg/dL (1.8-2.4); PHOSPHOROUS 3.3 mg/dL (2.5-4.9); POTASSIUM - SERUM 4.4 mmol/L (3.5-5.1); PROTEIN - SERUM 7.1 g/dL (6.4-8.2); SODIUM 134 mmol/L (136-145); UREA NITROGEN 8 mg/dL (7-18); eGFR NON AFRICAN AMERICAN > 90 mL/min (90-120)
--- NOTE | 2019-07-11 07:55 | NUR ---
TO IR VIA BED
--- NOTE | 2019-07-11 08:00 | NUR ---
ASSESSMENT PER FLOW SHEET. PT IS WITHOUT DISTRESS.HAS BEEN NPO FOR PROCEDURE TODAY.CALL LIGHT IN REACH
[2019-07-11 08:28] VITALS: BP 104/71
[2019-07-11 09:34] LABS: PROTEIN - BODY FLUID 2.8 G/DL
[2019-07-11 09:38] LABS: ANISOCYTOSIS OCC; PLATELET ESTIMATE DECREASED; TEAR DROP CELLS OCC
[2019-07-11 09:39] LABS: POIKILOCYTOSIS OCC
--- NOTE | 2019-07-11 11:00 | NUR ---
PROCEDURE COMPLETE. PT IS WITHOUT DISTRESS.MONITOR
[2019-07-11 11:10] LABS: CEA 5.8 ng/mL (0.0-4.7)
[2019-07-11 12:02] VITALS: BP 102/68
[2019-07-11 13:22] LABS: MACROPHAGES BF 47 %; MESOTHELIALS BF 29 %; NEUT - BF 5 %
--- NOTE | 2019-07-11 14:16 | MORECARE ---
CASE MANAGEMENT DISCHARGE SUMMARY PATIENT: MACO SAVAGE UNIT: [id number] ADM DATE: 07/09/19 AGE: 59 : 60 SEX: M ROOM/BED: D.4298 AUTHOR: CHAMPDOC PHYSICIAN: REFERRING PHYSICIAN: KEEGAN STARK MD DATE OF SERVICE: 07/11/19 Discharge Plan Patient Name: MACO SAVAGE Facility: [facility]:[place] : 1960 Planned Disposition: Home Anticipated Discharge Date: Discharge Date: Expected LOS: Initial Reviewer: [email or web address] Initial Review Date: 07/09/2019 Generated: 07/11/19 3:15 pm Comments DCP- Discharge Planning Updated by [id number]: Mile Genao on 07/11/19 1:[address] Patient Name: MACO SAVAGE Admission Status: ER Accout number: [id number] Admission Date: 07-09-2019 : 1960 Admission Diagnosis: Attending: KEEGAN STARK Current LOS: 2 Anticipated DC Date: Planned Disposition: Home Primary Insurance: [place] PR[employer] [place] Discharge Planning Comments: CM met with patient to complete initial dc planning assessment. CM educated patient on the CM role and verbal consent given by patient to complete assessment. Patient is homeless and stated that he has been staying a [facility] homeless alf for men. He has been staying there off and on for the past 3 years. He plans to return there today when he is discharged. He does have a sister, Barbara, but she is not an option to go stay with. CM will provide transportation for the alf after dinner & also provide x 2 bus tickets to get to his doctors appointment to start his chemo. At discharge patient plans to return to the alf and feels this is a safe discharge. Patient denied known discharge needs at this time. CM will continue to follow and will assist as needed with dc plans/needs. Bagging Machine Operator: Mile Genao DCPIA - Discharge Planning Initial Assessment Updated by [email or web address]: Mile Genao on 07/11/19 2:10 pm * Is the patient Alert and Oriented? Yes * PCP ILIANA? LUZ MARINA * Preadmission Environment Homeless * ADLs Independent * Equipment None * List name and contact numbers for known caregivers / representatives who currently or will assist patient after discharge: BARBARA (SISTER) * Verbal permission to speak to the caregivers and representatives has been obtained from the patient. No * Community resources currently utilized None * Additional services required to return to the preadmission environment? Yes * Can the patient safely return to the preadmission environment? Yes * Has this patient been hospitalized within the prior 30 days at any hospital? No Patient Name: MACO SAVAGE Page 91108 at 1416 All edits/amendments must be made on the electronic document DICTATION DATE: 07/11/191414 COGENERATION TECHNICIAN: YELENA 07/11/191414 RPT#: [id number] DC DATE: STATUS: ADM IN [facility] [address] [place] [address] END OF REPORT
--- NOTE | 2019-07-11 14:22 | MORECARE ---
CASE MANAGEMENT DISCHARGE SUMMARY PATIENT: MACO SAVAGE UNIT: [id number] ADM DATE: 07/09/19 AGE: 59 : 60 SEX: M ROOM/BED: D.2215 AUTHOR: CHAMPDOC PHYSICIAN: REFERRING PHYSICIAN: KEEGAN STARK MD DATE OF SERVICE: 07/11/19 Discharge Plan Patient Name: MACO SAVAGE Facility: [facility]:[place] : 1960 Planned Disposition: Home Anticipated Discharge Date: Discharge Date: Expected LOS: Initial Reviewer: [email or web address] Initial Review Date: 07/09/2019 Generated: 07/11/19 3:22 pm Comments DCP- Discharge Planning Updated by [email or web address]: Mile Genoa on 07/11/19 1:[address] taxi is 7.25 CM will pay for this approved by Agustina DCP- Discharge Planning Updated by [id number]: Mile Genao on 07/11/19 1:[address] Patient Name: MACO SAVAGE Admission Status: ER Accout number: [id number] Admission Date: 07-09-2019 : 1960 Admission Diagnosis: Attending: KEEGAN STARK Current LOS: 2 Anticipated DC Date: Planned Disposition: Home Primary Insurance: [place] [employer] [place] Discharge Planning Comments: CM met with patient to complete initial dc planning assessment. CM educated patient on the CM role and verbal consent given by patient to complete assessment. Patient is homeless and stated that he has been staying a [facility] homeless retirement for men. He has been staying there off and on for the past 3 years. He plans to return there today when he is discharged. He does have a sister, Barbara, but she is not an option to go stay with. CM will provide transportation for the retirement after dinner & also provide x 2 bus tickets to get to his doctors appointment to start his chemo. At discharge patient plans to return to the retirement and feels this is a safe discharge. Patient denied known discharge needs at this time. CM will continue to follow and will assist as needed with dc plans/needs. Chief Operator Synthesis: Mile Genao DCPIA - Discharge Planning Initial Assessment Updated by [email or web address]: Mile Genao on 07/11/19 2:10 pm * Is the patient Alert and Oriented? Yes * PCP ASHLEY RAZA * Preadmission Environment Homeless * ADLs Independent * Equipment None * List name and contact numbers for known caregivers / representatives who currently or will assist patient after discharge: BARBARA (SISTER) * Verbal permission to speak to the caregivers and representatives has been obtained from the patient. No * Community resources currently utilized None * Additional services required to return to the preadmission environment? Yes * Can the patient safely return to the preadmission environment? Yes * Has this patient been hospitalized within the prior 30 days at any hospital? No Last DP export: 07/11/19 1:16 p Patient Name: MACO SAVAGE Page 12076 at 1422 All edits/amendments must be made on the electronic document DICTATION DATE: 07/11/191421 HOME ECONOMICS TEACHER: YELENA 07/11/191421 RPT#: [id number] DC DATE: STATUS: ADM IN [facility] [address] [place] [address] END OF REPORT
[2019-07-11 16:24] VITALS: BP 101/69
--- NOTE | 2019-07-11 19:00 | NUR ---
WISHES TO GO OVER DC PAPERS. HE IS WITHOUT DISTRESS.TOLERATED REG DINNER TRAY.
--- NOTE | 2019-07-11 19:24 | NUR ---
IV DCD WITH CATH TIP INTACT. DISCHARGE INSTRUCTIONS,STATES UNDERSTANDING.CALL TO [employer] FOR RIDE TO SENIOR CARE.
--- NOTE | 2019-07-11 19:26 | NUR ---
LEFT UNIT VIA WHEELCHAIR FOR TRANSPORT
--- NOTE | 2019-07-14 12:09 | MORECARE ---
CASE MANAGEMENT DISCHARGE SUMMARY PATIENT: MACO SAVAGE UNIT: [id number] ADM DATE: 07/09/19 AGE: 59 : 60 SEX: M ROOM/BED: D.2215 AUTHOR: CHAMP,DOC PHYSICIAN: REFERRING PHYSICIAN: KEEGAN STARK MD DATE OF SERVICE: 07/14/19 Discharge Plan Patient Name: MACO SAVAGE Facility: [facility]:[place] : 1960 Planned Disposition: Home Anticipated Discharge Date: Discharge Date: 07/11/2019 Expected LOS: Initial Reviewer: [email or web address] Initial Review Date: 07/09/2019 Generated: 07/14/19 1:08 pm Comments DCP- Discharge Planning Updated by [id number]: Mile Genao on 07/11/19 1:[address] for taxi is 7.25 CM will pay for this approved by Agustina DCP- Discharge Planning Updated by [id number]: Mile Genao on 07/11/19 1:[address] Patient Name: MACO SAVAGE Admission Status: ER Accout number: [id number] Admission Date: 07-09-2019 : 1960 Admission Diagnosis: Attending: KEEGAN STARK Current LOS: 2 Anticipated DC Date: Planned Disposition: Home Primary Insurance: [place] [employer] [place] Discharge Planning Comments: CM met with patient to complete initial dc planning assessment. CM educated patient on the CM role and verbal consent given by patient to complete assessment. Patient is homeless and stated that he has been staying a [facility] homeless long term for men. He has been staying there off and on for the past 3 years. He plans to return there today when he is discharged. He does have a sister, Barbara, but she is not an option to go stay with. CM will provide transportation for the long term after dinner & also provide x 2 bus tickets to get to his doctors appointment to start his chemo. At discharge patient plans to return to the long term and feels this is a safe discharge. Patient denied known discharge needs at this time. CM will continue to follow and will assist as needed with dc plans/needs. Radio Equipment Repairer: Mile Genao DCPIA - Discharge Planning Initial Assessment Updated by [id number]: Mile Genao on 07/11/19 2:10 pm * Is the patient Alert and Oriented? Yes * PCP ASHLEY RAZA * Preadmission Environment Homeless * ADLs Independent * Equipment None * List name and contact numbers for known caregivers / representatives who currently or will assist patient after discharge: BARBARA (SISTER) * Verbal permission to speak to the caregivers and representatives has been obtained from the patient. No * Community resources currently utilized None * Additional services required to return to the preadmission environment? Yes * Can the patient safely return to the preadmission environment? Yes * Has this patient been hospitalized within the prior 30 days at any hospital? No Last DP export: 07/11/19 1:22 p Patient Name: MACO SAVAGE Page 06771 at 1209 All edits/amendments must be made on the electronic document DICTATION DATE: 07/14/191207 PERMACULTURE DESIGNER: YELENA 07/14/191207 RPT#: [id number] ND DATE:07/11/19 STATUS: DIS IN [facility] [address] [place] [address] END OF REPORT
== END 2019-07-11 19:43 | disposition home or self-care (01) | DRG 436 ==
LOC: D.ER 08:51 → D.MS 13:06
PROVIDERS: Emergency Medicine; Internal Medicine Hematology & Oncology; Radiology Diagnostic Radiology; Specialist; ADMIT Internal Medicine Nephrology; ATTEND Internal Medicine Nephrology
PROC: 0FB13ZX Excision of Right Lobe Liver, Percutaneous Approach, Diagnostic (ICD-10-PCS; principal; 2019-07-11 08:18)
PROC: 0W9G3ZZ Drainage of Peritoneal Cavity, Percutaneous Approach (ICD-10-PCS; 2019-07-11 08:18)
DX: C22.0 Liver cell carcinoma (principal); R18.0 Malignant ascites; N39.0 Urinary tract infection, site not specified; F17.203 Nicotine dependence unspecified, with withdrawal; B17.10 Acute hepatitis C without hepatic coma; E03.9 Hypothyroidism, unspecified; D64.9 Anemia, unspecified; F14.90 Cocaine use, unspecified, uncomplicated; D69.6 Thrombocytopenia, unspecified; B19.20 Unspecified viral hepatitis C without hepatic coma; E83.42 Hypomagnesemia

== ENCOUNTER 2019-08-01 13:50 | Inpatient (IN) | payer MEDICAID ==
[~2019-08-01] VITALS: Ht 185.4 cm; Wt 69.1 kg
[2019-08-01 14:42] LABS: BASOPHILS 0.2 % (0-2); EOSINOPHILS 0 % (0-7); HEMATOCRIT 27.3 % (42.0-54.0); HEMOGLOBIN 9.7 g/dL (13.5-17.5); IMMATURE GRANULOCYTES 1.5 % (0-5); LYMPHOCYTES 5.6 % (15-50); MCHC 35.5 g/dL (31.0-37.0); MCV 104.2 fL (80.0-100.0); MEAN PLATELET VOLUME 9.8 fL (7.4-10.4); MONOCYTES 9.9 % (2-11); NEUTROPHILS 82.8 % (40-80); RBC 2.62 10x6/uL (4.20-6.10); RDW 16.9 % (11.5-14.5); WBC 14.3 10x3/uL (4.8-10.8)
[2019-08-01 14:54] LABS: INR 2.21 (0.85-1.17); PROTIME 23.9 SECONDS (11.6-15.0)
[2019-08-01 14:55] LABS: APTT 40.1 SECONDS (22.8-39.4)
[2019-08-01 14:58] LABS: ALBUMIN 2.3 g/dL (3.4-5.0); ALKALINE PHOSPHATASE 173 U/L (46-116); ALT (SGPT) 37 U/L (10-68); BILIRUBIN - TOTAL 22.01 mg/dL (0.2-1.3); CALC OSMOLALITY 275 mosm/kg (275-300); CALCIUM 11.3 mg/dL (8.5-10.1); CARBON DIOXIDE 20.8 mmol/L (21.0-32.0); CHLORIDE - SERUM 101 mmol/L (98-107); CREATININE - SERUM 1.4 mg/dL (0.6-1.3); GLUCOSE 83 mg/dL (74-106); POTASSIUM - SERUM 4.3 mmol/L (3.5-5.1); PROTEIN - SERUM 7.8 g/dL (6.4-8.2); SODIUM 138 mmol/L (136-145); UREA NITROGEN 16 mg/dL (7-18); eGFR NON AFRICAN AMERICAN 55 mL/min (90-120)
[2019-08-01 15:02] LABS: AMYLASE - SERUM 22 U/L (25-115); LIPASE 134 U/L (73-393); MAGNESIUM - SERUM 1.6 mg/dL (1.8-2.4)
[2019-08-01 15:04] LABS: TROPONIN-I < 0.017 ng/mL (0.000-0.060)
[2019-08-01 15:05] LABS: PLATELET COUNT 117 10x3/uL (130-400)
--- NOTE | 2019-08-01 18:35 | NUR ---
VEE SAVAGE COMPLETED AT 1835.
--- NOTE | 2019-08-01 19:00 | NUR ---
NURSE ATTEMPTED TO PLACE MARKS WITH EDP PERMISSION, NURSE UNABLE TO PLACE MARKS AT THIS TIME.
[2019-08-01 19:17] VITALS: BP 122/86
--- NOTE | 2019-08-01 19:45 | NUR ---
PT MOVED TO ICU. HOOKED TO MONITOR, VSS. INITIAL ASSESSMENT COMPLETED
[2019-08-01 19:50] VITALS: BP 120/90
[2019-08-01 20:51] VITALS: BP 120/90; BMI 18.3
[2019-08-01 21:00] VITALS: BP 108/37
--- NOTE | 2019-08-01 21:00 | NUR ---
UNABLE TO ASSESS MED HISTORY OR SUICIDE SCREENING DUE TO PT BEING NONVERBAL. WILL CONTINUE TO ASSESS FOR OPPORTUNITY TO PERFORM ASSESSMENTS WHENEVER POSSIBLE. HOWEVER IF NOT POSSIBLE WILL RELAY THIS INFORMATION TO DAY SHIFT NURSE.
--- NOTE | 2019-08-01 21:00 | NUR ---
PT RESTING IN BED. FAMILY AT BEDSIDE. VSS. WILL CONTINUE TO MONITOR
[2019-08-01 22:00] VITALS: BP 110/46
[2019-08-01 23:00] VITALS: BP 111/34
[2019-08-01 23:16] LABS: APPEARANCE CLEAR (CLEAR); COLOR DK YELLOW (YELLOW); GLUCOSE NEGATIVE (NEGATIVE); KETONE NEGATIVE (NEGATIVE); NITRITE NEGATIVE (NEGATIVE); PROTEIN NEGATIVE (NEGATIVE)
[2019-08-01 23:17] LABS: BILIRUBIN 3+ (NEGATIVE)
[2019-08-01 23:18] LABS: BACTERIA FEW /hpf (NEGATIVE); EPITHELIAL CELLS 0-5 /hpf (0-5); MUCUS <1+ /lpf (NONE SEEN); RED CELLS - URINE 0-5 /hpf (0-5); WHITE CELLS - URINE 0-5 /hpf (NEGATIVE)
[2019-08-01 23:20] LABS: UDS - AMPHET NEGATIVE QUAL (NEGATIVE); UDS - BARB NEGATIVE QUAL (NEGATIVE); UDS - BENZO NEGATIVE QUAL (NEGATIVE); UDS - COCAINE NEGATIVE QUAL (NEGATIVE); UDS - OPIATE NEGATIVE QUAL (NEGATIVE); UDS - PCP NEGATIVE QUAL (NEGATIVE); UDS - THC NEGATIVE QUAL (NEGATIVE)
[2019-08-02] VITALS (26 sets, daily range): BP systolic 122–142; BP diastolic 76–90; Ht 185.4 cm; Wt 69.1 kg
--- NOTE | 2019-08-02 01:00 | NUR ---
PT RESTING IN BED. NEW IV STARTED IN RIGHT WRIST 20 GUAGE
--- NOTE | 2019-08-02 03:00 | NUR ---
PT REASSESSMENT COMPLETED. VSS. NO SIGNS OF DISTRESS NOTED. WILL CONTINUE TO MONITOR
[2019-08-02 04:32] LABS: BASOPHILS 0.2 % (0-2); EOSINOPHILS 0 % (0-7); HEMATOCRIT 24.2 % (42.0-54.0); HEMOGLOBIN 8.3 g/dL (13.5-17.5); IMMATURE GRANULOCYTES 1.1 % (0-5); LYMPHOCYTES 8.5 % (15-50); MCH 36.2 pg (26.0-34.0); MCHC 34.3 g/dL (31.0-37.0); MCV 105.7 fL (80.0-100.0); MONOCYTES 11.7 % (2-11); NEUTROPHILS 78.5 % (40-80); PLATELET COUNT 100 10x3/uL (130-400); RBC 2.29 10x6/uL (4.20-6.10); RDW 17.5 % (11.5-14.5); WBC 11.9 10x3/uL (4.8-10.8)
[2019-08-02 04:47] LABS: INR 2.36 (0.85-1.17); PROTIME 25.1 SECONDS (11.6-15.0)
[2019-08-02 04:58] LABS: ALBUMIN 2.1 g/dL (3.4-5.0); BILIRUBIN - TOTAL 20.44 mg/dL (0.2-1.3); CALCIUM 10.6 mg/dL (8.5-10.1); CARBON DIOXIDE 20.1 mmol/L (21.0-32.0); CREATININE - SERUM 1.6 mg/dL (0.6-1.3); PHOSPHOROUS 4.2 mg/dL (2.5-4.9); PROTEIN - SERUM 7.2 g/dL (6.4-8.2)
--- NOTE | 2019-08-02 05:00 | NUR ---
PT RESTING IN BED. NEURO CHECK COMPLETED. VSS. WILL CONTINUE TO MONITOR
[2019-08-02 05:02] LABS: MAGNESIUM - SERUM 2.2 mg/dL (1.8-2.4); POTASSIUM - SERUM 5.1 mmol/L (3.5-5.1)
--- NOTE | 2019-08-02 07:21 | NUR ---
REPORT RECIEVED. ASSESSMENT COMPLETE PER FLOW SHEET. VSS. REPOSITIONED FOR COMFORT. WILL CONTINUE TO MONITOR
--- NOTE | 2019-08-02 09:02 | NUR ---
DR RAZA AT BEDSIDE. GIVEN UDPATE. FAMILY CALLED GIVEN UDPATE STATED WOULD BE HERE AT 1430. STATED OKAY
--- NOTE | 2019-08-02 11:00 | NUR ---
REASSESSMENT COMPLETE PER FLOW SHEET. VSS. NO NEW CHANGES WILL CONTINUE TO MONITOR
--- NOTE | 2019-08-02 13:00 | NUR ---
FAMILY AT BEDSIDE SPOKE WITH DR ZHANG SEXTON AT [facility], AND SPOKE WITH DR RAZA IN [facility] REGAURDING STATUS. STATED UNDERSTANDING.
--- NOTE | 2019-08-02 14:59 | NUR ---
REASSESSMENT COMPLETE PER FLOW SHEET. VSS. NO NEW CHANGES WILL CONTINUE TO MONITOR
--- NOTE | 2019-08-02 15:56 | MORECARE ---
CASE MANAGEMENT DISCHARGE SUMMARY PATIENT: MACO SAVAGE UNIT: [id number] ADM DATE: 08/01/19 AGE: 59 : 60 SEX: M ROOM/BED: D.2301 AUTHOR: FINA OAKES PHYSICIAN: REFERRING PHYSICIAN: VAUGHN TATE MD DATE OF SERVICE: 08/02/19 Discharge Plan Patient Name: MACO SAVAGE [facility] [facility] 1960 Planned Disposition: Anticipated Discharge Date: Discharge Date: Expected LOS: Initial Reviewer: [email or web address] Initial Review Date: 08/02/2019 Generated: 08/02/19 4:56 pm DCPIA - Discharge Planning Initial Assessment Updated by [id number]: Yolanda Shirley on 08/02/19 3:56 pm * Is the patient Alert and Oriented? No * Preadmission Environment Homeless * ADLs Independent Patient Name: MACO SAVAGE Page [phone] at 1556 All edits/amendments must be made on the electronic document DICTATION DATE: 08/02/19 1556 CHIEF LOCK OPERATOR: YELENA 08/02/19 1556 RPT#: [id number] DC DATE: STATUS: ADM IN [facility] [address] [place] [address] END OF REPORT
--- NOTE | 2019-08-02 16:30 | MORECARE ---
CASE MANAGEMENT DISCHARGE SUMMARY PATIENT: MACO SAVAGE UNIT: [id number] ADM DATE: 08/01/19 AGE: 59 : 60 SEX: M ROOM/BED: D.2301 AUTHOR: FINA OAKES PHYSICIAN: REFERRING PHYSICIAN: VAUGHN TATE MD DATE OF SERVICE: 08/02/19 Discharge Plan Patient Name: MACO SAVAGE Facility: [facility]:[place] : 1960 Planned Disposition: Anticipated Discharge Date: Discharge Date: Expected LOS: Initial Reviewer: [email or web address] Initial Review Date: 08/02/2019 Generated: 08/02/19 5:29 pm Comments DCP- Discharge Planning Updated by [id number]: Yolanda Shirley on 08/02/19 3:[address] Patient Name: MACO SAVAGE Admission Status: ER Accout number: [id number] Admission Date: 08-01-2019 : 1960 Admission Diagnosis: Attending: ANABEL TATE Current LOS: 1 Anticipated DC Date: Planned Disposition: Primary Insurance: [place] [employer] [place] Discharge Planning Comments: CM attempted to meet with patient to complete initial dc planning assessment. Patient was nonverbal patient's daughter Jeanie Gomez [phone] at bedside. CM educated Jeanie on the CM role and verbal consent given by patient to complete assessment. Patient's daughter states that she hasn't spoken to her father for about 9 months and doesn't know where he has been living. CM was notified that the physician had just recently spoken to her regarding Hospice. Family is trying to make decisions regarding hospice. CM will continue to follow and assist as needed with discharge planning needs Crm Solution Architect: Yolanda Shirley DCPIA - Discharge Planning Initial Assessment Updated by [email or web address]: Yolanda Shirley on 08/02/19 3:56 pm * Is the patient Alert and Oriented? No * Preadmission Environment Homeless * ADLs Independent Last DP export: 08/02/19 2:56 p Patient Name: MACO SAVAGE Page [phone] at 1630 All edits/amendments must be made on the electronic document DICTATION DATE: 08/02/191628 RUBBER MILL OPERATOR: YELENA 08/02/191628 RPT#: [id number] [place] DATE: STATUS: ADM IN [facility] [address] [place] [address] END OF REPORT
--- NOTE | 2019-08-02 19:30 | NUR ---
PT RESPONDS TO PAINFUL STIMULI ONLY, LEFT AND RIGHT PIV INTACT WITH IVF INFUSING, NGT TO LIWS, SELINA PATENT TO BSD, WILL CONT TO MONITOR
--- NOTE | 2019-08-02 21:00 | NUR ---
FAMILY PRESENT AT BEDSIDE, NO CHANGE IN STATUS
--- NOTE | 2019-08-02 23:40 | NUR ---
Polina MENENDEZ APN PAGED AND NOTIFIED OF PT WITH BLEEDING NOTED FROM L NOSTRIL WITH NGT IN PLACE, TEMP 101.9 AND INCREASED HR AND RR. NEW ORDER REC'D.
[2019-08-03] VITALS (18 sets, daily range): BP systolic 103–127; BP diastolic 16–92
--- NOTE | 2019-08-03 02:30 | NUR ---
SEIZURE ACTIVITY NOTED, GIVEN ATIVAN 1 MG IV, WILL CONT TO MONITOR
[2019-08-03 03:12] LABS: BASOPHILS 0.1 % (0-2); EOSINOPHILS 0.1 % (0-7); HEMATOCRIT 24.2 % (42.0-54.0); HEMOGLOBIN 8.3 g/dL (13.5-17.5); IMMATURE GRANULOCYTES 0.4 % (0-5); LYMPHOCYTES 7.1 % (15-50); MCH 37.2 pg (26.0-34.0); MCHC 34.3 g/dL (31.0-37.0); MEAN PLATELET VOLUME 9.8 fL (7.4-10.4); MONOCYTES 11.4 % (2-11); NEUTROPHILS 80.9 % (40-80); PLATELET COUNT 91 10x3/uL (130-400); RBC 2.23 10x6/uL (4.20-6.10); RDW 18.3 % (11.5-14.5); WBC 13.2 10x3/uL (4.8-10.8)
[2019-08-03 03:28] LABS: MCV 108.5 fL (80.0-100.0); PLATELET ESTIMATE DECREASED
[2019-08-03 03:37] LABS: ANION GAP 22.3 mmol/L (8-16); BILIRUBIN - TOTAL 20.21 mg/dL (0.2-1.3); CALCIUM 10.2 mg/dL (8.5-10.1); CARBON DIOXIDE 16.5 mmol/L (21.0-32.0); CREATININE - SERUM 1.7 mg/dL (0.6-1.3); MAGNESIUM - SERUM 2.7 mg/dL (1.8-2.4); PHOSPHOROUS 3.9 mg/dL (2.5-4.9); POTASSIUM - SERUM 4.8 mmol/L (3.5-5.1); PROTEIN - SERUM 6.6 g/dL (6.4-8.2)
--- NOTE | 2019-08-03 04:40 | NUR ---
FSBS 57, PT GIVEN 1/2 AMP D50 IVP, VITALS STABLE
--- NOTE | 2019-08-03 05:53 | NUR ---
PT REMAINS COMATOSE WITH MINIMAL RESPONSE TO PAIN, VITALS STABLE
--- NOTE | 2019-08-03 07:16 | NUR ---
RECEIVED REPORT FROM NIGHT NURSE. VSS
--- NOTE | 2019-08-03 08:52 | NUR ---
Nutrition follow-up: Pt comatose per nursing NPO with NGT->LIWS Labs reviewed RDN following.
[2019-08-03 11:10] LABS: HEPATITIS C ANTIBODY >11.0 (0.0-0.9)
--- NOTE | 2019-08-03 14:38 | NUR ---
INCONTINENT BM. CLEANED AND CHANGED AND GAVE BATH
--- NOTE | 2019-08-03 15:30 | NUR ---
OBTAINED ORDER FOR 20MG IV LASIX FOR PATIENT--LUNGS ARE VERY WET.
--- NOTE | 2019-08-03 17:51 | NUR ---
FAMILY PRESENT IN ROOM AND HAS DECIDED THEY WOULD LIKE PURSUE HOSPICE CARE GIVEN THE PROGNOSIS. REJI WARPER CREELER NOTIFIED AND TALKED TO FAMILY. NOW WORKING ON SETTING UP HOSPICE
--- NOTE | 2019-08-03 18:19 | MORECARE ---
CASE MANAGEMENT DISCHARGE SUMMARY PATIENT: MACO SAVAGE UNIT: [id number] ADM DATE: 08/01/19 AGE: 59 : 60 SEX: M ROOM/BED: D.2301 AUTHOR: FINA OAKES PHYSICIAN: REFERRING PHYSICIAN: VAUGHN TATE MD DATE OF SERVICE: 08/03/19 Discharge Plan Patient Name: MACO SAVAGE Facility: [facility]:[place] : 1960 Planned Disposition: Anticipated Discharge Date: Discharge Date: Expected LOS: Initial Reviewer: [email or web address] Initial Review Date: 08/02/2019 Generated: 08/03/19 7:19 pm Comments DCP- Discharge Planning Updated by [id number]: Yolanda Shirley on 08/02/19 3:[address] Patient Name: MACO SAVAGE Admission Status: ER Accout number: [id number] Admission Date: 08-01-2019 : 1960 Admission Diagnosis: Attending: ANABEL TATE Current LOS: 1 Anticipated DC Date: Planned Disposition: Primary Insurance: [place] [employer] [place] Discharge Planning Comments: CM attempted to meet with patient to complete initial dc planning assessment. Patient was nonverbal patient's daughter Jeanie Gomez [phone] at bedside. CM educated Jeanie on the CM role and verbal consent given by patient to complete assessment. Patient's daughter states that she hasn't spoken to her father for about 9 months and doesn't know where he has been living. CM was notified that the physician had just recently spoken to her regarding Hospice. Family is trying to make decisions regarding hospice. CM will continue to follow and assist as needed with discharge planning needs Record Systems Analyst: Yolanda Shirley DCPIA - Discharge Planning Initial Assessment Updated by [email or web address]: Yolanda Shirley on 08/02/19 3:56 pm * Is the patient Alert and Oriented? No * Preadmission Environment Homeless * ADLs Independent External Providers External Provider: [facility](provides inp Next Contact Date: Service Request Date: Service Type: Resolution: Reviewer: Comments: Last DP export: 08/02/19 3:30 p Patient Name: MACO SAVAGE Page [phone] at 1819 All edits/amendments must be made on the electronic document DICTATION DATE: 08/03/191818 CASTING AND CURING OPERATOR: YELENA 08/03/191818 RPT#: [id number] DC DATE: STATUS: ADM IN [facility] [address] [place] [address] END OF REPORT
--- NOTE | 2019-08-03 18:42 | MORECARE ---
CASE MANAGEMENT DISCHARGE SUMMARY PATIENT: MACO SAVAGE UNIT: [id number] ADM DATE: 08/01/19 AGE: 59 : 60 SEX: M ROOM/BED: D.2301 AUTHOR: CHAMP,DOC PHYSICIAN: REFERRING PHYSICIAN: VAUGHN TATE MD DATE OF SERVICE: 08/03/19 Discharge Plan Patient Name: MACO SAVAGE Facility: [facility]:[place] : 1960 Planned Disposition: Anticipated Discharge Date: Discharge Date: Expected LOS: Initial Reviewer: [email or web address] Initial Review Date: 08/02/2019 Generated: 08/03/19 7:41 pm Comments DCP- Discharge Planning Updated by [email or web address]: Yolanda Shirley on 08/03/19 5:[address] CM notified that family is requesting Hospice. CM met with family in room Jeanie Gomez patient's daughter stated that they have decided on Hospice care. PHOEBE signed for [facility] GIP. CM notified [facility] lead generation representative staff. CM received call back from [facility] she stated that she would be here to eval and admit around 1929. CM faxed records to Hospice Office and made packet for staff to give Kim when she arrives. CM notified family that Hospice will be here around 1929. CM will continue to follow and assist as needed with discharge planning / needs. DCP- Discharge Planning Updated by [email or web address]: Yolanda Shirley on 08/02/19 3:[address] Patient Name: MACO SAVAGE Admission Status: ER Accout number: [id number] Admission Date: 08-01-2019 : 1960 Admission Diagnosis: Attending: ANABEL TATE Current LOS: 1 Anticipated DC Date: Planned Disposition: Primary Insurance: [place] [employer]IONS [facility] Discharge Planning Comments: CM attempted to meet with patient to complete initial dc planning assessment. Patient was nonverbal patient's daughter Jeanie Gomez [phone] at bedside. CM educated Jeanie on the CM role and verbal consent given by patient to complete assessment. Patient's daughter states that she hasn't spoken to her father for about 9 months and doesn't know where he has been living. CM was notified that the physician had just recently spoken to her regarding Hospice. Family is trying to make decisions regarding hospice. CM will continue to follow and assist as needed with discharge planning needs Director Of Optimization: Yolanda Shirley DCPIA - Discharge Planning Initial Assessment Updated by [id number]: Yolanda Shirley on 08/02/19 3:56 pm * Is the patient Alert and Oriented? No * Preadmission Environment Homeless * ADLs Independent Last DP export: 08/03/19 5:19 p Patient Name: MACO SAVAGE Page [phone] at 1842 All edits/amendments must be made on the electronic document DICTATION DATE: 08/03/191840 MANAGER IMPLEMENTATION: YELENA 08/03/191840 RPT#: [id number] DC DATE: STATUS: ADM IN [facility] [address] [place] [address] END OF REPORT
--- NOTE | 2019-08-03 19:00 | NUR ---
REPORT RECEIVED FROM DAY SHIFT NURSE. PT IS LAYING IN BED UNRESPONSIVE AT THIS TIME. FAMILY AT BEDSIDE WAITING FOR HOSPICE NURSE TO ARRIVE. INITIAL ASSESSMENT COMPLETED, SEE FLOWSHEET FOR DETAILS. PT REPOSITIONED FOR COMFORT. NO SIGNS OF ACUTE DISTRESS. WILL CONTINUE TO MONITOR.
--- NOTE | 2019-08-03 19:14 | MORECARE ---
CASE MANAGEMENT DISCHARGE SUMMARY PATIENT: MACO SAVAGE UNIT: [id number] ADM DATE: 08/01/19 AGE: 59 : 60 SEX: M ROOM/BED: D.2301 AUTHOR: CHAMP,DOC PHYSICIAN: REFERRING PHYSICIAN: VAUGHN TATE MD DATE OF SERVICE: 08/03/19 Discharge Plan Patient Name: MACO SAVAGE Facility: [facility]:[place] : 1960 Planned Disposition: Hospice Medical Facility Anticipated Discharge Date: Discharge Date: Expected LOS: Initial Reviewer: [email or web address] Initial Review Date: 08/02/2019 Generated: 08/03/19 8:14 pm Comments DCP- Discharge Planning Updated by [id number]: Yolanda Shirley on 08/03/19 5:[address] CM notified that family is requesting Hospice. CM met with family in room Litzy Hopper patient's daughter stated that they have decided on Hospice care. PHOEBE signed for [facility] GIP. CM notified [facility] superintendent overhead distribution staff. CM received call back from Kim @ [facility] she stated that she would be here to eval and admit around 1929. CM faxed records to Hospice Office and made packet for staff to give Kim when she arrives. CM notified family that Hospice will be here around 1929. CM will continue to follow and assist as needed with discharge planning / needs. DCP- Discharge Planning Updated by [id number]: Yolanda Shirley on 08/02/19 3:[address] Patient Name: MACO SAVAGE Admission Status: ER Accout number: [id number] Admission Date: 08-01-2019 : 1960 Admission Diagnosis: Attending: ANABEL TATE Current LOS: 1 Anticipated DC Date: Planned Disposition: Primary Insurance: [place] [employer]IONS [facility] Discharge Planning Comments: CM attempted to meet with patient to complete initial dc planning assessment. Patient was nonverbal patient's daughter Litzy Hopper [phone] at bedside. CM educated Litzy on the CM role and verbal consent given by patient to complete assessment. Patient's daughter states that she hasn't spoken to her father for about 9 months and doesn't know where he has been living. CM was notified that the physician had just recently spoken to her regarding Hospice. Family is trying to make decisions regarding hospice. CM will continue to follow and assist as needed with discharge planning needs Cracker Dough Mixer: Yolanda CARLISLEA - Discharge Planning Initial Assessment Updated by [id number]: Yolanda Shirley on 08/02/19 3:56 pm * Is the patient Alert and Oriented? No * Preadmission Environment Homeless * ADLs Independent Coverage Notice Reviewer: [id number] - Yolanda Shirley Notice Issued Date-Time: 08/03/2019 17:50 Notice Type: Patient Choice Letter Notice Delivered To: Family Member Relationship to Patient: Daughter Captain Assistant Name: LITZY HOPPER Delivery Method: HAND - Hand Delivered Larissa Days: Prior Verbal Notification: Recipient Understood Notice: Yes Recipient Signature: Yes Med Rec Note Co-signed by Attending: Coverage Notice Comment: Last DP export: 08/03/19 5:42 p Patient Name: MACO SAVAGE Page [phone] at 1914 All edits/amendments must be made on the electronic document DICTATION DATE: 08/03/191913 TIRE SPECIALIST: YELENA 08/03/191913 RPT#: [id number] DC DATE: STATUS: ADM IN [facility] [address] [place] [address] END OF REPORT
--- NOTE | 2019-08-06 09:11 | MORECARE ---
CASE MANAGEMENT DISCHARGE SUMMARY PATIENT: MACO SAVAGE UNIT: [id number] ADM DATE: 08/01/19 AGE: 59 : 60 SEX: M ROOM/BED: D.2301 AUTHOR: FINA OAKES PHYSICIAN: REFERRING PHYSICIAN: VAUGHN TATE MD DATE OF SERVICE: 08/06/19 Discharge Plan Patient Name: MACO SAVAGE Facility: [facility]:[place] : 1960 Planned Disposition: Hospice Medical Facility Anticipated Discharge Date: Discharge Date: 08/03/2019 Expected LOS: Initial Reviewer: [id number] Initial Review Date: 08/02/2019 Generated: 08/06/19 10:10 am Comments DCP- Discharge Planning Updated by [id number]: Yolanda Shirley on 08/03/19 5:[address] CM notified that family is requesting Hospice. CM met with family in room Litzy Hopper patient's daughter stated that they have decided on Hospice care. PHOEBE signed for [facility] GIP. CM notified [facility] television journalist staff. CM received call back from Kim @ [facility] she stated that she would be here to eval and admit around 1929. CM faxed records to Hospice Office and made packet for staff to give Kim when she arrives. CM notified family that Hospice will be here around 1929. CM will continue to follow and assist as needed with discharge planning / needs. DCP- Discharge Planning Updated by [id number]: Yolanda Shirley on 08/02/19 3:[address] Patient Name: MACO SAVAGE Admission Status: ER Accout number: [id number] Admission Date: 08-01-2019 : 1960 Admission Diagnosis: Attending: ANABEL TATE Current LOS: 1 Anticipated DC Date: Planned Disposition: Primary Insurance: [place] PRIVATE [employer]IONS [facility] Discharge Planning Comments: CM attempted to meet with patient to complete initial dc planning assessment. Patient was nonverbal patient's daughter Litzy Hopper [phone] at bedside. CM educated Litzy on the CM role and verbal consent given by patient to complete assessment. Patient's daughter states that she hasn't spoken to her father for about 9 months and doesn't know where he has been living. CM was notified that the physician had just recently spoken to her regarding Hospice. Family is trying to make decisions regarding hospice. CM will continue to follow and assist as needed with discharge planning needs Schedule Supervisor: Yolanda Shirley DCPIA - Discharge Planning Initial Assessment Updated by [id number]: Yolanda Shirley on 08/02/19 3:56 pm * Is the patient Alert and Oriented? No * Preadmission Environment Homeless * ADLs Independent Coverage Notice Reviewer: [id number] - Yolanda Shirley Notice Issued Date-Time: 08/03/2019 17:50 Notice Type: Patient Choice Letter Notice Delivered To: Family Member Relationship to Patient: Daughter Ambulance Officer Name: LITZY HOPPER Delivery Method: HAND - Hand Delivered Larissa Days: Prior Verbal Notification: Recipient Understood Notice: Yes Recipient Signature: Yes Med Rec Note Co-signed by Attending: Coverage Notice Comment: Last DP export: 08/03/19 6:14 p Patient Name: MACO SAVAGE Page [phone] at 0911 All edits/amendments must be made on the electronic document DICTATION DATE: 08/06/19909 PONY RIDE ATTENDANT: YELENA 08/06/19909 RPT#: [id number] DC DATE:08/03/19 STATUS: DIS IN [facility] [address] [place] [address] END OF REPORT
== END 2019-08-03 22:25 | disposition hospice, inpatient (51) | DRG 441 ==
LOC: D.ER 13:50 → D.ICU 17:44
PROVIDERS: Emergency Medicine; ADMIT Emergency Medicine; ATTEND Emergency Medicine
DX: K72.90 Hepatic failure, unspecified without coma (principal); R40.2114 Coma scale, eyes open, never, 24 hours or more after hospital admission; R40.2314 Coma scale, best motor response, none, 24 hours or more after hospital admission; R40.2214 Coma scale, best verbal response, none, 24 hours or more after hospital admission; C22.7 Other specified carcinomas of liver; R18.8 Other ascites; E72.20 Disorder of urea cycle metabolism, unspecified; D68.59 Other primary thrombophilia; F10.10 Alcohol abuse, uncomplicated; B19.20 Unspecified viral hepatitis C without hepatic coma; K80.20 Calculus of gallbladder without cholecystitis without obstruction; F17.200 Nicotine dependence, unspecified, uncomplicated; I10 Essential (primary) hypertension; E03.9 Hypothyroidism, unspecified; R56.9 Unspecified convulsions

== ENCOUNTER 2019-08-03 22:25 | Inpatient (IN) | payer OTHER ==
[~2019-08-03] VITALS: Ht 185.4 cm; Wt 63.1 kg
--- NOTE | 2019-08-03 22:25 | NUR ---
PT ADMITTED TO HOSPICE AND TRANSFERRED OVER IN THE SYSTEM. PT IS LAYING IN BED UNRESPONSIVE AT THIS TIME. NO SIGNS OF ACUTE DISTRESS. WILL CONTINUE TO MONITOR.
[2019-08-03 22:30] VITALS: BP 107/68
[2019-08-03 23:00] VITALS: BP 109/70
[2019-08-04 00:44] VITALS: BP 107/68; BMI 18.3
--- NOTE | 2019-08-04 01:00 | NUR ---
PT IS LAYING IN BED UNRESPONSIVE AT THIS TIME. NO ACUTE CHANGES NOTED AT THIS TIME. NO SIGNS OF ACUTE DISTRESS. WILL CONTINUE TO MONITOR.
[2019-08-04 03:00] VITALS: BP 100/66
--- NOTE | 2019-08-04 03:00 | NUR ---
PT IS LAYING IN BED UNRESPONSIVE AT THIS TIME. PT WAS INCONTINENT OF A LARGE WATERY BM. PT WAS GIVEN A FULL CHG BATH AND LINEN CHANGE. NO SIGNS OF ACUTE DISTRESS NOTED. WILL CONTINUE TO MONITOR.
--- NOTE | 2019-08-04 05:00 | NUR ---
PT IS RESTING IN BED. PT IS NOT RESPONSIVE TO STIMULI. NO SIGNS OF ACUTE DISTRESS. PT REPOSITIONED FOR COMFORT. WILL CONTINUE TO MONITOR.
[2019-08-04 07:00] VITALS: BP 97/54
--- NOTE | 2019-08-04 07:10 | NUR ---
NO RESPONSE TO VERBAL STIMULI. SKIN WARM AND DRY. IV RIGHT WRIST INFUSING WITH MORPHINE AT 0.5 MG HOUR CONTINOUS, NS AT 5 [address]. MONITOR SR. MARKS CATH PATENT DRAINING CLEAR KENNEDY URINE.
--- NOTE | 2019-08-04 09:00 | NUR ---
REPOSITIONED OPENED EYES WHEN REPOSITIONED. NO OTHER RESPONSE DID NOT MOVE EXTREMITIES TO ASSIST. IV PATENT.
[2019-08-04 09:18] VITALS: Ht 185.4 cm; Wt 63.1 kg
[2019-08-04 11:00] VITALS: BP 92/50
--- NOTE | 2019-08-04 11:10 | NUR ---
REPORT CALLED TO DORIAN PATIENT TO TRANSFER TO ROOM 1204 PER BED
--- NOTE | 2019-08-04 11:40 | NUR ---
RECEIVED PATIENT FROM ICU. UPON ASSESSMENT PATIENTS HAS A SMALL FINGERNAIL SIZED WOUND TO THE LOWER BACK/TOP OF BUTTOCK. PT IS ON 2L OF OXYGEN VIA NASAL CANNULA. PT IS NONRESPONSIVE CURRENTLY. RIGHT WRIST IV WITH MORPHINE WET PROCESS ASSISTANT HEAD MILLER AND NS @ 5ML/HR, MARKS CATHETER. PT IS HEP C+, HISTORY OF ALOCHOLISM, SEIZURES AND WAS POSITIVE FOR COCAINE UPON ADMISSION. PT IS CURRENTLY ON HOSPICE AND IS A DNR. RECEIVED REPORT FROM CALIN, ICU
[2019-08-04 13:11] VITALS: BP 86/52
--- NOTE | 2019-08-04 14:28 | NUR ---
PT IS SITUATED COMFORTABLY IN BED WITH EYES CLOSED. BREATHING IS NOT EVEN AND SLIGHTLY LABORED. PT IS UNRESPONSIVE TO VOICE AND STIMULATION. VITAL SIGNS WERE STABLE WHEN ASSESSED.
--- NOTE | 2019-08-04 16:28 | NUR ---
ADMINISTERED IV ATIVAN AT THIS TIME. PT IS RESTING COMFORTABLY WITH EYES CLOSED. BREATHING UNEVEN AND LABORED. AUDIBLE BREATHING SOUNDS. PT IS UNRESPONSIVE TO VOICE OR STIMULI. WILL CTM.
--- NOTE | 2019-08-04 19:25 | NUR ---
LYING IN BED WITH EYES CLOSED, RESPIRATIONS ARE EVEN, CONT.MORPHINE FILLING HAND INFUSING VIA ORDERS. DOES NOT AROUSE TO VERBAL STIMULI. WILL NOTE ANY CHANGE.
[2019-08-04 20:00] VITALS: BP 100/50
[2019-08-05 00:21] VITALS: BP 87/41
--- NOTE | 2019-08-05 01:24 | NUR ---
I have reviewed this patient and I concur with the Shift Assessment completed by the Licensed Practical Nurse today this shift.
--- NOTE | 2019-08-05 07:56 | NUR ---
AM ROUNDS- PT IS RESTING SUPINE IN BED, BREATHING UNEVEN AND SLIGHTLY LABORED. NONRESPONSIVE TO VERBAL OR PHYSICAL STIMULI. VITAL SIGNS ASSESSED AT THIS TIME. BP: 71/35 P:84 R:23 O2: 88% ON 2L VIA NASAL CANNULA WILL CONTINUE TO MONITOR CLOSELY.
--- NOTE | 2019-08-05 08:30 | NUR ---
ADMINISTERED IV MEDICATION TO PT. PT IS STILL RESTING COMFORTABLY WITH EYES CLOSED, BREATHING UNEVEN AND SLIGHTLY LABORED. ROLLED PT TO RIGHT SIDE AT THIS TIME. WILL CTM CLOSELY.
[2019-08-05 08:57] VITALS: BP 71/35
--- NOTE | 2019-08-05 11:49 | NUR ---
I have reviewed this patient and I concur with the Shift Assessment completed by the Licensed Practical Nurse today this shift.
--- NOTE | 2019-08-05 15:08 | NUR ---
PT IS RESTING COMFORTABLY IN BED BREATHING IS BECOMING MORE IRREGULAR AND SHALLOW. TURNED PT AT THIS TIME. WILL CTM CLOSELY.
--- NOTE | 2019-08-05 16:01 | NUR ---
ADMINISTERED MEDICATION AT THIS TIME. PT APPEARS TO BE RESTING COMFORTABLY. ASSESSED OXYGEN LEVEL VIA FINGER PULSE OX. RIGHT FINGERS READ 88% OXYGEN SATURATION AND THE LEFT HAND READS 37% OXYGEN SATURATION. WILL CTM CLOSELY.
--- NOTE | 2019-08-05 18:08 | NUR ---
PT SEEMS TO BE RESTING COMFORTABLY, BREATHING UNEVEN AND LABORED. PT WAS TURNED TO LEFT SIDE AT THIS TIME. WILL CTM.
--- NOTE | 2019-08-05 19:10 | NUR ---
PT RESTING QUIETLY. EYES CLOSED. RESP SHALLOW. MARKS INTACT. ON 2L OF O2 VIA NC. CL IN REACH. BED IN LOW SIDE RAILS X2. WILL CONTINUE TO MONITOR.
[2019-08-05 20:37] VITALS: BP 68/31
--- NOTE | 2019-08-05 23:00 | NUR ---
I have reviewed this patient and I concur with the Shift Assessment completed by the Licensed Practical Nurse today this shift.
--- NOTE | 2019-08-05 23:56 | NUR ---
PT . CONTACTED HOSPICE NURSE AND CINDER PITMAN.
--- NOTE | 2019-08-06 03:35 | NUR ---
HOME A NATURAL STATE RECIEVED PT. REMOVED PIV TO LEFT AC AND RIGHT WRIST AND MARKS.
== END 2019-08-06 03:41 | DRG 951 ==
LOC: D.ICU 22:25 → D.M3 08-04 11:49
PROVIDERS: ADMIT Legal Medicine; ATTEND Legal Medicine
DX: Z51.5 Encounter for palliative care (principal)